=== PATIENT | male | born 1980 | race Caucasian/White ===

== ENCOUNTER 2021-03-12 16:39 | Emergency (ER) | payer OTHER ==
[~2021-03-12] VITALS: Ht 170.2 cm; Wt 71.2 kg
[2021-03-12] MEDS ORDERED: XELPROS2.5 ML (17:05)
== END 2021-03-12 21:59 | disposition home or self-care (01) ==
LOC: ER 16:39
DX: M62.838 Other muscle spasm (principal); F06.4 Anxiety disorder due to known physiological condition